=== PATIENT | male | born 1965 | race Caucasian/White ===

== ENCOUNTER 2024-12-16 09:39 | Outpatient (AMB) | payer OTHER, SELFPAY ==
--- NOTE | 2024-12-16 09:47 | MHC.OFFVIS ---
Vital Signs 12/16/24 09:51 Height 5 ft 7 in Weight 193 lb BMI 30.2 BP 91/50 L Blood Pressure Location Lt brachial Position Sitting Pulse 45 L Pulse Oximetry (%) 98 Oxygen Delivery Method Room Air Intake Visit Reasons: Colonoscopy Screening Intake Note: Patient new consult for 2nd pre Colonoscopy. Patient denies any GI issues. Membership Coordinator Required: No Accompanied by: Self / Same As Patient Allergies No Known Allergies Allergy (Verified 12/16/24 09:46) Medication List - Last Reconciled 12/16/24 by Aggie Roberts CNP aspirin (Adult Low Dose Aspirin) 81 mg PO DAILY atorvastatin 80 mg PO DAILY cholecalciferol (vitamin D3) 50 mcg PO DAILY clopidogrel 75 mg PO DAILY escitalopram oxalate 10 mg PO DAILY fexofenadine (Julia Allergy) 180 mg PO DAILY lisinopril 10 mg PO DAILY melatonin 10 mg PO BEDTIME PRN metoprolol tartrate 25 mg PO BID oxymetazoline 0.05% (12 Hour Nasal Relief [place]) 2 sprays intranasal Q12H PRN temazepam 7.5 mg PO BEDTIME PRN HPI HPI Colonoscopy Screening: Details: Patient is a 59-year-old male with PMH of CAD, hypertension, hyperlipidemia and CHON. Referred by PCP for pre colonoscopy screening. [place]ares [place] with recommendations for repeat 10 years. He reports daily bowel movements, sometimes more, sometimes less, depending on food intake. Occasional minimal straining and infrequent spots of bright red blood on tissue, reported last six months ago. No acid reflux, regurgitation, or trouble swallowing. Issues with insomnia managed with as-needed temazepam and/or melatonin. Patient has a history of coronary artery disease and hypertension, managed by Dr. Elias Gardiner at [facility]. Last visit was three months ago, with a stable follow-up cardiac catheterization in the last six months. Patient had a cardiac stent placed approximately nine years ago. Patient denies: fever/chills, n/v, appetite changes, pyrosis, regurgitation,dysphasia, unintentional wt loss or ab pain Social hx: - Diet: Attempts to eat healthily; dietary habits vary. - Alcohol/Tobacco/Drug Use: No alcohol for two years, glass of wine daily before cessation. Past smoking, quit at age 27. No recreational drug use. 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 PFSH Medical History (Updated 12/16/24 @ 10:00 by Aggie Roberts CNP) Colon cancer screening Surgical History (Updated 12/16/24 @ 09:59 by Lexie Portillo) Hx of colonoscopy History of repair of ACL Family History (Updated 12/16/24 @ 09:49 by Lexie Portillo) Mother Cholangiolitis Heart disease Father HTN (hypertension) Heart disease Paternal Grandfather Cancer Social History Household Members: Family Alcohol intake: former Patient Tobacco Use Status: Former Tobacco user Smoked in Last 30 Days: No Use of substances other than those prescribed or required for medical reasons: No Review of Systems Const Reports as per HPI ENT Reports as per HPI Card Reports as per HPI Resp Reports as per HPI GI Reports as per HPI Reports as per HPI Physical Exam Vital Signs: Last Vital Signs Pulse 45 L 12/16/24 09:51 BP 91/50 L 12/16/24 09:51 Pulse Ox 98 12/16/24 09:51 Oxygen Delivery Method Room Air 12/16/24 09:51 BMI result Body Mass Index 30.2 Const General: healthy appearing, no acute distress and well developed Nutritional Appearance: well nourished Orientation/consciousness: patient oriented x3 HEENT Head: Yes normal to inspection, Yes normocephalic and Yes atraumatic Face and sinus: Yes normal facial exam Eyes General: appearance normal, both eyes and all related structures Neck Neck: Yes normal visual inspection Resp Effort & Inspection: normal respiratory effort, able to speak in complete sentences, no tracheal deviation and symmetric chest movement Auscultation: clear to auscultation bilaterally Cardio Jugular venous distension: no JVD Rate: regular rate Rhythm: regular rhythm Heart sounds: S1 normal heart sound present, S2 normal heart sound present, no gallops and no murmurs GI Inspection: Yes normal to inspection and No distended Palpation (GI): Soft to palpation, not firm, nontender and No hepatosplenomegaly present Auscultation: normal bowel sounds Neuro General: patient oriented x3 Gait exam (Neuro): Normal gait present Psych Appearance: grossly normal Mental Status: mental status grossly normal Speech and movement: Normal speech and movement present Affect: normal affect Attitude: cooperative Thought process: Normal thought process present Thought content: Normal thought content present Insight: Good insight present (Psych) Judgement: Good judgement present (Psych) Assessment & Plan Assessment & Plan (1) Colon cancer screening: Code(s): Z12.11 - Encounter for screening for malignant neoplasm of colon Category: Medical Plan: 10 year screening colonoscopy. Diagnostic Tests: Prescriptions for laxative tablets and Miralax sent to pharmacy; instructions for Gatorade purchase and clear liquid diet given. Medications: - aspirin and clopidogrel to be held prior to procedure. Advise we will confirm with prescriber on exact length of hold. Patient educated on procedure preparation, including avoiding certain foods and ensuring clear liquid intake. Advised on necessity for ride post-procedure due to sedation. Plan Follow-up as needed Time: I spent a total of 30 minutes on the date of encounter which includes: Preparing to see the patient (reviewed previous documentation, test results and medical history) Performing a medically appropriate exam and/or evaluation Ordering medications, tests, and procedures Documenting clinical information in the health record Coding Level of Care Code New Pt New Pt Level 3 (48915) Patient Type New Diagnoses Colon cancer screening Z12.11
[2024-12-16 09:51] VITALS: BP 91/50; PULSE 45; O2SAT 98; BMI 30.2
--- OUTSIDE RECORDS SUMMARY | 2024-12-16 10:39 | XMS_ITS | Patient Health Record ---
Author Organization [employer] [facility] Address [address] [place] [address] Care Team Providers Care Stock Selector Name Role Phone ERICA HOLT Primary Care Provider Allergies No Known Allergies Results Component Value Reference Range Notes PSA (Serial Monitor)-[id number] Reviewed date:08/16/2024 08:15:34 AM Interpretation: Performing Lab:[facility], [address] [place] [address], Phone - [phone], Director - Olive Notes/Report: Prostate Specific Ag 3.0 0.0-4.0 ng/mL Kelly ECLIA methodology. . According to the [place] [employer], Serum PSA should decrease and remain at undetectable levels after radical prostatectomy. The AUA defines biochemical recurrence as an initial PSA value 0.2 ng/mL or greater followed by a subsequent confirmatory PSA value 0.2 ng/mL or greater. Values obtained with different assay methods or kits cannot be used interchangeably. Results cannot be interpreted as absolute evidence of the presence or absence of malignant disease. Vitamin B12 and Folate-[id number] 0 Reviewed date:08/16/2024 08:13:13 AM Interpretation: Performing Lab:[facility], [address] [facility], Phone - [phone], Director - Bushradryamil Notes/Report: Vitamin B12 123 060-4651 pg/mL Folate (Folic Acid), Serum 9.1 >3.0 ng/mL A serum folate concentration of less than 3.1 ng/mL is considered to represent clinical deficiency. TSH-[id number] Reviewed date:08/16/2024 08:13:16 AM Interpretation: Performing Lab:[facility], [address] [facility], Phone - [phone], Director Jennifer Schaefer Notes/Report: TSH 1.020 0.450-4.500 uIU/mL 25-Hydroxyvitamin D LCVA D2+ [id number] Reviewed date:08/16/2024 08:15:30 AM Interpretation: Performing Lab:[facility] [address] [place] [address], Phone - [phone], Director Jennifer Schaefer Notes/Report: 25-Hydroxy, Vitamin D 26 Reference Range: All Ages: Target levels 30 - 100 25-Hydroxy, Vitamin D-2 <1.0 This test was developed and its performance characteristics determined by [employer]. It has not been cleared or approved by the Food and Drug Administration. 25-Hydroxy, Vitamin D-3 26 This test was developed and its performance characteristics determined by [facility]. It has not been cleared or approved by the Food and Drug Administration. Lyme Disease Serology w/Refl ex-[id number] Reviewed date:08/16/2024 08:15:36 AM Interpretation: Performing Lab:[facility] [address] [place] [address], Phone - [phone], Director Jennifer Schaefer Notes/Report: Lyme Total Antibody JESSE Negative Negative Lyme antibodies not detected. Reflex testing is not indicated. No laboratory evidence of infection with B. burgdorferi (Lyme disease). Negative results may occur in patients recently infected (less than or equal to 14 days) with B. burgdorferi. If recent infection is suspected, repeat testing on a new sample collected in 7 to 14 days is recommended. Hemoglobin [id number] Reviewed date:08/16/2024 08:15:41 AM Interpretation: Performing Lab:[facility] [address] [place] [address], Phone - [phone], Director Jennifer Schaefer Notes/Report: Hemoglobin A1c 5.3 4.8-5.6 % . Prediabetes: 5.7 - 6.4 Diabetes: >6.4 Glycemic control for adults with diabetes: <7.0 Lipid Panel-[id number] Reviewed date:08/16/2024 08:15:44 AM Interpretation: Performing Lab:[facility], Phone - [phone], Director Jennifer Schaefer Notes/Report: Cholesterol, Total 123 100-199 mg/dL Triglycerides 102 0-149 mg/dL HDL Cholesterol 40 >39 mg/dL VLDL Cholesterol Davis 19 5-40 mg/dL LDL Chol Calc ([facility]) 64 0-99 mg/dL Comp. Metabolic Panel ([id number] Reviewed date:08/16/2024 08:15:20 AM Interpretation: Performing Lab:[facility], [address] [place] [address], Phone - [phone], Director - Olive Notes/Report: Glucose 96 70-99 mg/dL BUN 16 8-27 mg/dL Creatinine 0.90 0.76-1.27 mg/dL eGFR 98 >59 mL/min/1.73 BUN/Creatinine Ratio 18 10-24 Sodium 141 134-144 mmol/L Potassium 4.7 3.5-5.2 mmol/L Chloride 104 96-106 mmol/L Carbon Dioxide, Total 23 20-29 mmol/L Calcium 9.3 8.6-10.2 mg/dL Protein, Total 6.8 6.0-8.5 g/dL Albumin 4.4 3.8-4.9 g/dL Globulin, Total 2.4 1.5-4.5 g/dL Bilirubin, Total 0.5 0.0-1.2 mg/dL Alkaline Phosphatase 68 44-121 IU/L AST (SGOT) 28 0-40 IU/L ALT (SGPT) 31 0-44 IU/L CBC, Platelet, No Differenti al-[id number] Reviewed date:08/16/2024 08:15:39 AM Interpretation: Performing Lab:[facility], [address] [place] [address], Phone - [phone], Director - Olive Notes/Report: WBC 6.0 3.4-10.8 x10E3/uL RBC 4.73 4.14-5.80 x10E6/uL Hemoglobin 14.7 13.0-17.7 g/dL Hematocrit 43.5 37.5-51.0 % MCV 92 79-97 fL MCH 31.1 26.6-33.0 pg MCHC 33.8 31.5-35.7 g/dL RDW 12.5 11.6-15.4 % Platelets 228 150-450 x10E3/uL Albumin/Creatinine Ratio,Uri ne-[id number] Reviewed date:08/16/2024 08:15:56 AM Interpretation: Performing Lab:[facility] [address] [place] [address], Phone - [phone], Director - Olive Notes/Report: Creatinine, Urine 147.5 Not Estab. mg/dL Albumin, Urine 14.4 Not Estab. ug/mL Alb/Creat Ratio 10 0-29 mg/g creat Normal: 0 - 29 Moderately increased: 30 - 300 Severely increased: >300 Reason For Referral Reason yearly screening Diagnosis 1 Encounter for screen ing for malignant neoplasm of skin (Z12.83) Referral Organization [facility] Referring Provider First Name MALDONADO Referring Provider Last Name [facility] Referring Provider Speciality Internal edicine Referred Provider Specialty Dermatology General Notes Referral faxed. Chiquisa se call patient to schedule appointment.Jaylin Shannon 10/21/2024 02:26:59 PM > Referral Priority Routine Reason screening colonoscop y Diagnosis 1 Annual physical exam (Z00.00) Referral Organization [facility] Referring Provider First Name ERICA Referring Provider Last Name [facility] Referring Provider Speciality Internal edicine Referred Provider Specialty Gastroentero logy General Notes Referral faxed. Plea se call patient to schedule appointment.Jaylin Shannon 10/21/2024 02:32:57 PM > Referral Priority Routine Medications Medication SIG (Take, Route, Frequency, Duration) Notes Start Date End Date Status Escitalopram Oxalate 10 MG TAKE 1 TABLET BY MOUTH EVERY DAY for 90 days Active Metoprolol Tartrate 50 MG TAKE 1 TABLET BY MOUTH TWO TIMES A DAY WITH FOOD for 90 days Active Restoril 7.5 MG 1 capsule at bedtime as needed Orally Once a day for 30 days prn 12/14/2023 Active Aspirin Low Dose 81 MG TAKE 2 TABLETS BY MOUTH EVERY DAY for 90 days Active Julia Allergy 180 MG 1 tablet Swallow whole with water; do not take with fruit juices. Orally Once a day Active Atorvastatin Calcium 80 MG TAKE 1 TABLET BY MOUTH EVERY DAY for 90 days Active Nasal [place] 0.05 % 2 sprays in each nos tril as needed Nasally Twice a day Active Lisinopril 10 MG 1 tablet Orally Once a day Active Clopidogrel Bisulfate 75 MG 1 tablet Ora lly Once a day Active Immunizations Vaccine Route Administration Date Status Comme nts COVID Unknown 07/16/2020 Administered Pfizer COVID Unknown 08/06/2020 Administered Pfizer COVID Unknown 03/31/2021 Administered Pfizer-boost er COVID Pfizer Unknown 11/11/2021 Administered COVID-19 Moderna Unknown 12/26/2022 Administered Influenza Unknown 05/13/2021 Administered Pneumococcal polysaccharide PPV23 Unknown 06/23/2021 Administered Social History Tobacco Use: Social History Observation Description Date Details (start date - stop date) Former Smoker NA - NA Tobacco Use/Smoking Question Answer Notes Are you a former smoker How long has it been since you last smoked? > 10 years Alcohol Screen (Audit-C) Question Answer Notes Did you have a drink contain ing alcohol in the past year? Yes How often did you have a dri nk containing alcohol in the past year? Monthly or less (1 point) How many drinks did you have on a typical day when you were drinking in the past year? 1 or 2 drinks (0 point) How often did you have 6 or more drinks on one occasion in the past year? Never (0 point) Points 1 Interpretation Negative Problems Problem Type SNOMED Code ICD Code Onset Dates Problem Status W/U Status Risk Notes Problem Mixed hyperlipidemia (824884436) Mixed hyperlipidemia (E78.2) Active confirmed Problem Generalized anxiety disorder (54181806) Generalized anxiety disorder (F41.1) Active confirmed Problem Insomnia (737407933) Insomnia, unspecified (G47.00) Active confirmed Problem Obstructive sleep apnea syndrome (disorder) (57641274) Obstructive sleep apnea (adult) (pediatric) (G47.33) Active confirmed Problem Atherosclerotic heart disease of [place] coronary artery without angina pectoris (499858312393916) Atherosclerotic heart disease of [place] coronary artery without angina pectoris (I25.10) Active confirmed Problem Sciatica (03741055) Sciatica, unspecified side (M54.30) Active confirmed Problem Hyperesthesia (79601202) Hyperesthesia (R20.3) Active confirmed Problem Essential hypertension (08542827) Essential (primary) hypertension (I10) Active confirmed Vital Signs Heart Rate 54 /min 07/08/2024 Temperature 97.1 degrees Fahrenheit 07/08/2024 Oximetry 97 % 07/08/2024 Blood pressure diastolic 78 mm Hg 07/08/2024 Height 68 in 07/08/2024 Blood pressure systolic 130 mm Hg 07/08/2024 Weight 196.8 lbs 07/08/2024 BMI 29.92 kg/m2 07/08/2024 Encounters Encounter Location Date Provider Diagnosis [facility] [address] [place] [address] 07/08/2024 ERICA HOLT Essential (primary) hypertension I10 ; Annual physical exam Z00.00 ; Mixed hyperlipidemia E78.2 ; Generalized anxiety disorder F41.1 ; Atherosclerotic heart disease of [place] coronary artery without angina pectoris I25.10 ; Insomnia, unspecified G47.00 ; Obstructive sleep apnea (adult) (pediatric) G47.33 ; Impaired fasting glucose R73.01 ; Other fatigue R53.83 and Encounter for screening for malignant neoplasm of prostate Z12.5 [facility] [address] [place] [address] 02/06/2024 ERICA HOLT Assessments Encounter Date Diagnosis (ICD Code) Assessment Notes Treatment Notes Treatment Clinical Notes Section Notes 07/08/2024 Essential (primary) hypertension (ICD-10 - I10) Dr. Maldonado is a 59 year old gentleman with a history of coronary artery disease, hypertension, hyperlipidemia, generalized anxiety disorder here for annual physical. Plan is as follows: Hypertension. Blood pressure was repeated 2 times it was 92/70. He was advised to take metoprolol 25 mg half a tablet twice a day and monitor blood pressure and pulse at home and continue lisinopril 10 mg daily. Hyperlipidemia. Last lipid panel within normal limits. Continue on current regimen. Check lipid panel. Generalized anxiety disorder. Mood is stable on current regimen CAD. He is on right medications. He sees cardiology and Recent stress test was stable And no change from previous study. Insomnia. Continue Restoril 7.5 MG, 1 capsule at bedtime as needed. Fatigue. Differential is polypharmacy, insomnia, anxiety. We will check reversible conditions like anemia, thyroid dysfunction, vitamin D levels. He was also advised to decrease metoprolol to 25 mg 1 tablet twice a day and observe. Stay appropriately hydrated and increase the dose of melatonin and magnesium and take Restoril as needed. Class 1 obesity. Advised dietary restrictions and regular exercise. Goal is to lose 4-6 lbs a month. Eye screening. Referred to Ophthalmology Dental screening. He sees dentist regularly. Colon cancer screening. He had his colonoscopy done in 2013 and is on [id number]. Referred to GI for colonoscopy Immunizations. He is up-to-date on his vaccinations. Screening blood work before next appointment. General health concerns discussed with patient. Scribe services used to formulate this note under HIPAA compliance and under [place] law mandated for scribe services. Patient aware of service. Verbal consent and written consent taken from the patient. Patient understands and verbalizes understanding of the scribes services and all questions answered regarding scribes services. Patient agrees to use of scribes services. 07/08/2024 Annual physical exam (ICD-10 - Z00.00) Dr. Maldonado is a 59 year old gentleman with a history of coronary artery disease, hypertension, hyperlipidemia, generalized anxiety disorder here for annual physical. Plan is as follows: Hypertension. Blood pressure was repeated 2 times it was 92/70. He was advised to take metoprolol 25 mg half a tablet twice a day and monitor blood pressure and pulse at home and continue lisinopril 10 mg daily. Hyperlipidemia. Last lipid panel within normal limits. Continue on current regimen. Check lipid panel. Generalized anxiety disorder. Mood is stable on current regimen CAD. He is on right medications. He sees cardiology and Recent stress test was stable And no change from previous study. Insomnia. Continue Restoril 7.5 MG, 1 capsule at bedtime as needed. Fatigue. Differential is polypharmacy, insomnia, anxiety. We will check reversible conditions like anemia, thyroid dysfunction, vitamin D levels. He was also advised to decrease metoprolol to 25 mg 1 tablet twice a day and observe. Stay appropriately hydrated and increase the dose of melatonin and magnesium and take Restoril as needed. Class 1 obesity. Advised dietary restrictions and regular exercise. Goal is to lose 4-6 lbs a month. Eye screening. Referred to Ophthalmology Dental screening. He sees dentist regularly. Colon cancer screening. He had his colonoscopy done in 2013 and is on [id number]. Referred to GI for colonoscopy Immunizations. He is up-to-date on his vaccinations. Screening blood work before next appointment. General health concerns discussed with patient. Scribe services used to formulate this note under HIPAA compliance and under [place] law mandated for scribe services. Patient aware of service. Verbal consent and written consent taken from the patient. Patient understands and verbalizes understanding of the scribes services and all questions answered regarding scribes services. Patient agrees to use of scribes services. 07/08/2024 Mixed hyperlipidemia (ICD-10 - E78.2) Dr. Maldonado is a 59 year old gentleman with a history of coronary artery disease, hypertension, hyperlipidemia, generalized anxiety disorder here for annual physical. Plan is as follows: Hypertension. Blood pressure was repeated 2 times it was 92/70. He was advised to take metoprolol 25 mg half a tablet twice a day and monitor blood pressure and pulse at home and continue lisinopril 10 mg daily. Hyperlipidemia. Last lipid panel within normal limits. Continue on current regimen. Check lipid panel. Generalized anxiety disorder. Mood is stable on current regimen CAD. He is on right medications. He sees cardiology and Recent stress test was stable And no change from previous study. Insomnia. Continue Restoril 7.5 MG, 1 capsule at bedtime as needed. Fatigue. Differential is polypharmacy, insomnia, anxiety. We will check reversible conditions like anemia, thyroid dysfunction, vitamin D levels. He was also advised to decrease metoprolol to 25 mg 1 tablet twice a day and observe. Stay appropriately hydrated and increase the dose of melatonin and magnesium and take Restoril as needed. Class 1 obesity. Advised dietary restrictions and regular exercise. Goal is to lose 4-6 lbs a month. Eye screening. Referred to Ophthalmology Dental screening. He sees dentist regularly. Colon cancer screening. He had his colonoscopy done in 2013 and is on [id number]. Referred to GI for colonoscopy Immunizations. He is up-to-date on his vaccinations. Screening blood work before next appointment. General health concerns discussed with patient. Scribe services used to formulate this note under HIPAA compliance and under [place] law mandated for scribe services. Patient aware of service. Verbal consent and written consent taken from the patient. Patient understands and verbalizes understanding of the scribes services and all questions answered regarding scribes services. Patient agrees to use of scribes services. 07/08/2024 Generalized anxiety disorder (ICD-10 - F41.1) Dr. Maldonado is a 59 year old gentleman with a history of coronary artery disease, hypertension, hyperlipidemia, generalized anxiety disorder here for annual physical. Plan is as follows: Hypertension. Blood pressure was repeated 2 times it was 92/70. He was advised to take metoprolol 25 mg half a tablet twice a day and monitor blood pressure and pulse at home and continue lisinopril 10 mg daily. Hyperlipidemia. Last lipid panel within normal limits. Continue on current regimen. Check lipid panel. Generalized anxiety disorder. Mood is stable on current regimen CAD. He is on right medications. He sees cardiology and Recent stress test was stable And no change from previous study. Insomnia. Continue Restoril 7.5 MG, 1 capsule at bedtime as needed. Fatigue. Differential is polypharmacy, insomnia, anxiety. We will check reversible conditions like anemia, thyroid dysfunction, vitamin D levels. He was also advised to decrease metoprolol to 25 mg 1 tablet twice a day and observe. Stay appropriately hydrated and increase the dose of melatonin and magnesium and take Restoril as needed. Class 1 obesity. Advised dietary restrictions and regular exercise. Goal is to lose 4-6 lbs a month. Eye screening. Referred to Ophthalmology Dental screening. He sees dentist regularly. Colon cancer screening. He had his colonoscopy done in 2013 and is on [id number]. Referred to GI for colonoscopy Immunizations. He is up-to-date on his vaccinations. Screening blood work before next appointment. General health concerns discussed with patient. Scribe services used to formulate this note under HIPAA compliance and under [place] law mandated for scribe services. Patient aware of service. Verbal consent and written consent taken from the patient. Patient understands and verbalizes understanding of the scribes services and all questions answered regarding scribes services. Patient agrees to use of scribes services. 07/08/2024 Atherosclerotic heart disease of [place] coronary artery without angina pectoris (ICD-10 - I25.10) Dr. Maldonado is a 59 year old gentleman with a history of coronary artery disease, hypertension, hyperlipidemia, generalized anxiety disorder here for annual physical. Plan is as follows: Hypertension. Blood pressure was repeated 2 times it was 92/70. He was advised to take metoprolol 25 mg half a tablet twice a day and monitor blood pressure and pulse at home and continue lisinopril 10 mg daily. Hyperlipidemia. Last lipid panel within normal limits. Continue on current regimen. Check lipid panel. Generalized anxiety disorder. Mood is stable on current regimen CAD. He is on right medications. He sees cardiology and Recent stress test was stable And no change from previous study. Insomnia. Continue Restoril 7.5 MG, 1 capsule at bedtime as needed. Fatigue. Differential is polypharmacy, insomnia, anxiety. We will check reversible conditions like anemia, thyroid dysfunction, vitamin D levels. He was also advised to decrease metoprolol to 25 mg 1 tablet twice a day and observe. Stay appropriately hydrated and increase the dose of melatonin and magnesium and take Restoril as needed. Class 1 obesity. Advised dietary restrictions and regular exercise. Goal is to lose 4-6 lbs a month. Eye screening. Referred to Ophthalmology Dental screening. He sees dentist regularly. Colon cancer screening. He had his colonoscopy done in 2013 and is on [id number]. Referred to GI for colonoscopy Immunizations. He is up-to-date on his vaccinations. Screening blood work before next appointment. General health concerns discussed with patient. Scribe services used to formulate this note under HIPAA compliance and under [place] law mandated for scribe services. Patient aware of service. Verbal consent and written consent taken from the patient. Patient understands and verbalizes understanding of the scribes services and all questions answered regarding scribes services. Patient agrees to use of scribes services. 07/08/2024 Insomnia, unspecified (ICD-10 - G47.00) Dr. Maldonado is a 59 year old gentleman with a history of coronary artery disease, hypertension, hyperlipidemia, generalized anxiety disorder here for annual physical. Plan is as follows: Hypertension. Blood pressure was repeated 2 times it was 92/70. He was advised to take metoprolol 25 mg half a tablet twice a day and monitor blood pressure and pulse at home and continue lisinopril 10 mg daily. Hyperlipidemia. Last lipid panel within normal limits. Continue on current regimen. Check lipid panel. Generalized anxiety disorder. Mood is stable on current regimen CAD. He is on right medications. He sees cardiology and Recent stress test was stable And no change from previous study. Insomnia. Continue Restoril 7.5 MG, 1 capsule at bedtime as needed. Fatigue. Differential is polypharmacy, insomnia, anxiety. We will check reversible conditions like anemia, thyroid dysfunction, vitamin D levels. He was also advised to decrease metoprolol to 25 mg 1 tablet twice a day and observe. Stay appropriately hydrated and increase the dose of melatonin and magnesium and take Restoril as needed. Class 1 obesity. Advised dietary restrictions and regular exercise. Goal is to lose 4-6 lbs a month. Eye screening. Referred to Ophthalmology Dental screening. He sees dentist regularly. Colon cancer screening. He had his colonoscopy done in 2013 and is on [id number]. Referred to GI for colonoscopy Immunizations. He is up-to-date on his vaccinations. Screening blood work before next appointment. General health concerns discussed with patient. Scribe services used to formulate this note under HIPAA compliance and under [place] law mandated for scribe services. Patient aware of service. Verbal consent and written consent taken from the patient. Patient understands and verbalizes understanding of the scribes services and all questions answered regarding scribes services. Patient agrees to use of scribes services. 07/08/2024 Obstructive sleep apnea (adult) (pediatric) (ICD-10 - G47.33) Dr. Maldonado is a 59 year old gentleman with a history of coronary artery disease, hypertension, hyperlipidemia, generalized anxiety disorder here for annual physical. Plan is as follows: Hypertension. Blood pressure was repeated 2 times it was 92/70. He was advised to take metoprolol 25 mg half a tablet twice a day and monitor blood pressure and pulse at home and continue lisinopril 10 mg daily. Hyperlipidemia. Last lipid panel within normal limits. Continue on current regimen. Check lipid panel. Generalized anxiety disorder. Mood is stable on current regimen CAD. He is on right medications. He sees cardiology and Recent stress test was stable And no change from previous study. Insomnia. Continue Restoril 7.5 MG, 1 capsule at bedtime as needed. Fatigue. Differential is polypharmacy, insomnia, anxiety. We will check reversible conditions like anemia, thyroid dysfunction, vitamin D levels. He was also advised to decrease metoprolol to 25 mg 1 tablet twice a day and observe. Stay appropriately hydrated and increase the dose of melatonin and magnesium and take Restoril as needed. Class 1 obesity. Advised dietary restrictions and regular exercise. Goal is to lose 4-6 lbs a month. Eye screening. Referred to Ophthalmology Dental screening. He sees dentist regularly. Colon cancer screening. He had his colonoscopy done in 2013 and is on [id number]-[id number]. Referred to GI for colonoscopy Immunizations. He is up-to-date on his vaccinations. Screening blood work before next appointment. General health concerns discussed with patient. Scribe services used to formulate this note under HIPAA compliance and under [place] law mandated for scribe services. Patient aware of service. Verbal consent and written consent taken from the patient. Patient understands and verbalizes understanding of the scribes services and all questions answered regarding scribes services. Patient agrees to use of scribes services. 07/08/2024 Impaired fasting glucose (ICD-10 - R73.01) Dr. Maldonado is a 59 year old gentleman with a history of coronary artery disease, hypertension, hyperlipidemia, generalized anxiety disorder here for annual physical. Plan is as follows: Hypertension. Blood pressure was repeated 2 times it was 92/70. He was advised to take metoprolol 25 mg half a tablet twice a day and monitor blood pressure and pulse at home and continue lisinopril 10 mg daily. Hyperlipidemia. Last lipid panel within normal limits. Continue on current regimen. Check lipid panel. Generalized anxiety disorder. Mood is stable on current regimen CAD. He is on right medications. He sees cardiology and Recent stress test was stable And no change from previous study. Insomnia. Continue Restoril 7.5 MG, 1 capsule at bedtime as needed. Fatigue. Differential is polypharmacy, insomnia, anxiety. We will check reversible conditions like anemia, thyroid dysfunction, vitamin D levels. He was also advised to decrease metoprolol to 25 mg 1 tablet twice a day and observe. Stay appropriately hydrated and increase the dose of melatonin and magnesium and take Restoril as needed. Class 1 obesity. Advised dietary restrictions and regular exercise. Goal is to lose 4-6 lbs a month. Eye screening. Referred to Ophthalmology Dental screening. He sees dentist regularly. Colon cancer screening. He had his colonoscopy done in 2013 and is on [id number]. Referred to GI for colonoscopy Immunizations. He is up-to-date on his vaccinations. Screening blood work before next appointment. General health concerns discussed with patient. Scribe services used to formulate this note under HIPAA compliance and under [place] law mandated for scribe services. Patient aware of service. Verbal consent and written consent taken from the patient. Patient understands and verbalizes understanding of the scribes services and all questions answered regarding scribes services. Patient agrees to use of scribes services. 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 Plan is as follows: Hypertension. Blood pressure was repeated 2 times it was 92/70. He was advised to take metoprolol 25 mg half a tablet twice a day and monitor blood pressure and pulse at home and continue lisinopril 10 mg daily. Hyperlipidemia. Last lipid panel within normal limits. Continue on current regimen. Check lipid panel. Generalized anxiety disorder. Mood is stable on current regimen CAD. He is on right medications. He sees cardiology and Recent stress test was stable And no change from previous study. Insomnia. Continue Restoril 7.5 MG, 1 capsule at bedtime as needed. Fatigue. Differential is polypharmacy, insomnia, anxiety. We will check reversible conditions like anemia, thyroid dysfunction, vitamin D levels. He was also advised to decrease metoprolol to 25 mg 1 tablet twice a day and observe. Stay appropriately hydrated and increase the dose of melatonin and magnesium and take Restoril as needed. Class 1 obesity. Advised dietary restrictions and regular exercise. Goal is to lose 4-6 lbs a month. Eye screening. Referred to Ophthalmology Dental screening. He sees dentist regularly. Colon cancer screening. He had his colonoscopy done in 2013 and is on [id number]. Referred to GI for colonoscopy Immunizations. He is up-to-date on his vaccinations. Screening blood work before next appointment. General health concerns discussed with patient. Scribe services used to formulate this note under HIPAA compliance and under [place] law mandated for scribe services. Patient aware of service. Verbal consent and written consent taken from the patient. Patient understands and verbalizes understanding of the scribes services and all questions answered regarding scribes services. Patient agrees to use of scribes services. 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 Plan is as follows: Hypertension. Blood pressure was repeated 2 times it was 92/70. He was advised to take metoprolol 25 mg half a tablet twice a day and monitor blood pressure and pulse at home and continue lisinopril 10 mg daily. Hyperlipidemia. Last lipid panel within normal limits. Continue on current regimen. Check lipid panel. Generalized anxiety disorder. Mood is stable on current regimen CAD. He is on right medications. He sees cardiology and Recent stress test was stable And no change from previous study. Insomnia. Continue Restoril 7.5 MG, 1 capsule at bedtime as needed. Fatigue. Differential is polypharmacy, insomnia, anxiety. We will check reversible conditions like anemia, thyroid dysfunction, vitamin D levels. He was also advised to decrease metoprolol to 25 mg 1 tablet twice a day and observe. Stay appropriately hydrated and increase the dose of melatonin and magnesium and take Restoril as needed. Class 1 obesity. Advised dietary restrictions and regular exercise. Goal is to lose 4-6 lbs a month. Eye screening. Referred to Ophthalmology Dental screening. He sees dentist regularly. Colon cancer screening. He had his colonoscopy done in 2013 and is on [id number]. Referred to GI for colonoscopy Immunizations. He is up-to-date on his vaccinations. Screening blood work before next appointment. General health concerns discussed with patient. Scribe services used to formulate this note under HIPAA compliance and under [place] law mandated for scribe services. Patient aware of service. Verbal consent and written consent taken from the patient. Patient understands and verbalizes understanding of the scribes services and all questions answered regarding scribes services. Patient agrees to use of scribes services. Plan Of Treatment Pending Test Test Name Order Date COMPREHENSIVE METABOLIC PANEL 12/23/2021 Future Test Test Name Order Date ANTI-NUCLEAR ANTIBODY SCREEN, REFLEX TO TITER 06/07/2022 COMPREHENSIVE METABOLIC PANEL 06/07/2022 LIPID PANEL 06/07/2022 PSA, SCREEN 06/07/2022 HEPATITIS A ANTIBODY, IGM 06/08/2022 HEPATITIS B CORE ANTIBODY, IGM 2 HEPATITIS B SURFACE ANTIGEN 06/08/2022 HEPATITIS C ANTIBODY 06/08/2022 MITOCHONDRIAL (M2) ANTIBODY 06/08/2022 SMOOTH MUSCLE ANTIBODY 06/08/2022 LIPID PANEL 12/13/2022 CBC, No Differential/Platelet-[id number] 04/2024 Next Appt Details Provider Name:Hany wilkinson, 01/06/2025 03:45:00 PM, [address] [place] [address], [phone], Insurance Providers Payer Name Payer Address Payer Phone Subscriber Number Group Number Insured Name Patient Relationship to Insured Coverage Start Date Coverage End Date [facility] [address] [place] [address] [phone] [id number] Bryce Maldonado Self - patient is the insured 1 Medical (General) History Medical History History ICD Code Coronary artery disease 2016 Stent Circu mflex and LAD Disease, Dr. Gardiner Hypertension Hyperlipidemia Generalized anxiety disorder Stress test December 2015. Nucle ar imaging positive for medium size, mild severity, mixed fixed and reversible perfusion defect extending from the mid anterior septum to the true apex which is slightly reversible at the apex. There is concern for myocardial scar with mild maricarmen-infarct ischemia. EF was 66%. No regional wall abnormality. Mild sleep apnea on sleep st [facility] done sleep medicine services of [facility] in February 2020 Personal history of COVID-19 Surgical History Surgery Date(Month/Year) ACL repair of the right knee 09/2018 Stent placed 03/2019
--- OUTSIDE RECORDS SUMMARY | 2024-12-16 10:39 | XMS_ITS | Clinical Summary ---
Author Organization [facility] Address [address] [place] [address] Phone Care Team Providers Care Plate Painter Name Role Phone Ashlie Bowles MD Primary Care Provider [phone] Allergies No known active allergies Medications MAGNESIUM ORAL Take by mouth as needed. Active melatonin 1 mg tablet Take 5 Tablets by mouth daily as needed. Active atorvastatin (LIPITOR) 80 mg tablet Take 1 tablet (80 mg total) by mouth 1 (one) time each day. 09/07/2019 Active aspirin 81 mg EC tablet Take 2 tablets (162 mg total) by mouth 1 (one) time each day. 02/11/2020 Active escitalopram (LEXAPRO) 10 mg tablet Take 10 mg by mouth daily. Active fexofenadine (DEE) 180 mg tablet Take 180 mg by mouth as needed. Active metoprolol tartrate (LOPRESSOR) 25 mg tabletIndicatio ns:Coronary artery disease involving [place] coronary artery of [place] heart without angina pectoris Take 1 tablet (25 mg total) by mouth 2 (two) times a day. 60 each 11 08/04/2024 Active clopidogreL (PLAVIX) 75 mg tablet TAKE 1 TABLET BY MOUTH EVERY DAY 90 tablet 1 08/27/2024 Active lisinopriL (PRINIVIL,ZESTR IL) 10 mg tablet TAKE 1 TABLET BY MOUTH EVERY DAY 90 tablet 2 10/28/2024 Active Active Problems Problem Noted Date Diagnosed Date Sleep apnea 12/13/2022 Coronary artery disease invo lving kan[place] coronary artery of [place] heart without angina pectoris 03/22/2021 Overview (08/20/2024): March 2016 - episode of prolonged chest discomfort radiating to the arms in the setting of intense emotional stress, positive troponin, markedly abnormal stress test resulting in angiogram showing double vessel coronary disease with critical proximal left circumflex artery stenosis and 50% ostial LAD stenosis, moderately severe lesions in proximal LAD and diffuse disease elsewhere status post left circumflex artery stenting Repeat angiogram - no progression of disease January 2019 - stress test in [place]; he exercised for 9 minutes on a standard Gurjit protocol without chest discomfort with nuclear scans demonstrating reversible anterior ischemia 2020 - stress test showing LAD territory ischemia, excellent performance on stress test with comparative relative mild reduction in functional capacity April 2024 - angiogram in the setting of worsening effort capacity and ongoing abnormal test showed 40% stenosis of the distal left main, 40% proximal LAD, 65% mid LAD, 60% mid LAD, 40% proximal left circumflex, 30% mid left circumflex and 30% mid RCA no change from prior catheterization Assessment & Plan (08/20/2024 7:52 AM EST): The patient has a known significant history of coronary artery disease with his last catheterization in April at [facility] with Dr. Elias Gardiner showing moderate stable disease with patent previous stent. He continues to have symptoms and his previous stress testing did show anterior wall ischemia. Is not entirely clear whether these symptoms reflect angina, or related to medications noncardiac etiology or related to his present lifestyles. After long discussion we have decided to reduce his metoprolol dose to see if this helps his symptoms. If symptoms worsen then we may want to consider an alternative antianginal therapy. Continue with aspirin, high-dose atorvastatin, clopidogrel, lisinopril and reduced dose metoprolol. We discussed risk reduction through lifestyle choices including healthy diet, routine exercise and weight management. Orders: metoprolol tartrate (LOPRESSOR) 25 mg tablet; Take 1 tablet (25 mg total) by mouth 2 (two) times a day. Dyspnea on exertion 03/22/2021 Surgical History Surgery Date Site/Laterality Comments CARDIAC CATHETERIZATION DONE ON 05/09/2024 AT [facility] INDICATIONS: CAD and Abnormal stress treadmill study Social History Tobacco Use Types Packs/Day Years Used Date Smoking Tobacco: Former Smokeless Tobacco: Never Alcohol Use Standard Drinks/Week Comments Not Currently 0 (1 standard drink = 0.6 oz pur e alcohol) Sex and Gender Information Value Date Recorded Sex Assigned at Male 09/05/2024 10:01 AM EST Legal Sex Male 5:26 AM EST Gender Identity Male 09/05/2024 10:01 AM EST Sexual Orientation Straight 09/05/2024 10 :01 AM EST Obstetrics History Last Filed Vital Signs Vital Sign Reading Time Taken Comments Blood Pressure 114/72 08/04/2024 2:20 PM EST Pulse 52 08/04/2024 2:20 PM EST Temperature - - Respiratory Rate - - Oxygen Saturation 95% 08/04/2024 2:20 PM EST Inhaled Oxygen Concentration - - Weight 88 kg (194 lb) 08/04/2024 2:20 PM EST Height 170.2 cm (5' 7 ) 08/04/2024 2:20 PM EST Body Mass Index 30.38 08/04/2024 2:20 PM EST Plan of Treatment Upcoming Encounters Date Type Department Care Team (Late st Contact Info) Description 02/12/2025 2:00 PM EDT Office Visit [facility] Cardiology [address] [place] [address] Elias Gardiner MD [address] [place] [id number] Health Maintenance Due Date Last Done Comments DTaP,Tdap,and Td Vaccines (1 - Tdap) 01/11/1983 Zoster Vaccines (1 of 2) 01/11/2014 Pneumococcal Vaccine: 50+ Years (2 of 2 - PCV) 06/23/2022 06/23/2021 Cholesterol Screening (Lipid Panel) 07/08/2022 Colorectal Cancer Screening: Colonoscopy 07/08/2022 Depression Screening 07/08/2022 HIV Screening 07/08/2022 Hepatitis C Screening 07/08/2022 Social Influencers of Health Screening 07/08/2022 Hypertension/CHF/CAD Annual BMP Blood Test 07/13/2022 COVID-19 Vaccine ( season) 2024 04/26/2023, 12/26/2022, 11/11/2021, Additional history exists Influenza Vaccine (Season Ended) 2025 04/30/2023, 05/13/2021 RSV Immunization Adult Patients (1 - 1-dose 75+ series) 01/11/2039 Pneumococcal Vaccine: Pediatrics (0 to 5 Years) and At-Risk Patients (6 to 64 Years) Aged Out 06/23/2021 No longer eligible based on patient's age to complete this topic HIB Vaccines Aged Out No longer eligi ble based on patient's age to complete this topic HPV Vaccines Aged Out No longer eligi ble based on patient's age to complete this topic Hepatitis A Vaccines Aged Out No long er eligible based on patient's age to complete this topic Hepatitis B Vaccines Aged Out No long er eligible based on patient's age to complete this topic IPV Vaccines Aged Out No longer eligi ble based on patient's age to complete this topic MMR Vaccines Aged Out No longer eligi ble based on patient's age to complete this topic Meningococcal ACWY Vaccine Aged Out N o longer eligible based on patient's age to complete this topic Meningococcal B Vaccine Aged Out No l onger eligible based on patient's age to complete this topic RSV Immunization Patients Under 20 months Aged Out No longer eligible based on patient's age to complete this topic Varicella Vaccines Aged Out No longer eligible based on patient's age to complete this topic Insurance [facility] Care Teams Plate Painter Relationship Specialty Start Date End Date Ashlie Bowles MD [address] [place] [address] PCP - General 09/01/19
== END 2024-12-16 10:21 | disposition home or self-care (01) ==
LOC: HO.HGI 09:39
PROVIDERS: PCP Hospitalist; Visit Provider Nurse Practitioner Family
DX: Z01.818 Encounter for other preprocedural examination (principal); Z12.11 Encounter for screening for malignant neoplasm of colon
CPT/HCPCS: 99202

== ENCOUNTER → 2024-12-16 09:39 | Outpatient (BNVA) | payer OTHER, SELFPAY | PROVIDERS: PCP Hospitalist; Visit Provider Nurse Practitioner Family ==

== ENCOUNTER 2025-05-05 06:38 | Day surgery (SDC) | payer OTHER, SELFPAY ==
--- OUTSIDE RECORDS SUMMARY | 2025-04-23 19:18 | XMS_ITS | Encounter Summary ---
Author Organization [facility] Address [address] [place] [address] Care Team Providers Care Account Executive Name Role Phone Ashlie Bowles MD Primary Care Provider [phone] Encounter Details Date Type Department Care Team (Late st Contact Info) Description 04/23/2025 Telephone [facility] [address] [place] [address] Elias Gardiner MD [address] [place] [address] [address] [place] [address] Social History Tobacco Use Types Packs/Day Years Used Date Smoking Tobacco: Former Cigarettes Smokeless Tobacco: Never Alcohol Use Standard Drinks/Week Comments Not Currently 0 (1 standard drink = 0.6 oz pur e alcohol) Sex and Gender Information Value Date Recorded Sex Assigned at Male 09/05/2024 10:01 AM EST Legal Sex Male 5:26 AM EST Gender Identity Male 09/05/2024 10:01 AM EST Sexual Orientation Straight 09/05/2024 10 :01 AM EST documented as of this encounter Progress Notes * Elias Gardiner MD - 04/23/2025 5:26 PM EDT error documented in this encounter Plan of Treatment Not on file documented as of this encounter Visit Diagnoses Not on filedocumented in this encounter Care Teams Account Executive Relationship Specialty Start Date End Date Ashlie Bowles MD [address] [place] [phone] PCP - General 09/01/19 documented as of this encounter
--- OUTSIDE RECORDS SUMMARY | 2025-04-23 19:18 | XMS_ITS | Clinical Summary ---
Author Organization [facility] Address [address] [place] [address] Phone Care Team Providers Care Physician Locums Urgent Care Name Role Phone Ashlie Bowles MD Primary Care Provider Allergies No known active allergies Medications melatonin 1 mg tablet Take 5 Tablets [...] 180 mg by mouth as needed. Active lisinopriL (PRINIVIL,ZESTR IL) 10 mg tablet TAKE 1 TABLET BY MOUTH EVERY DAY 90 tablet 2 10/28/2024 Active metoprolol tartrate (LOPRESSOR) 25 mg tabletIndicatio ns:Coronary artery disease involving [place] coronary artery of [place] heart without angina pectoris Take 1 tablet (25 mg total) by mouth 2 (two) times a day. 180 tablet 1 01/26/2025 Active clopidogreL (PLAVIX) 75 mg tablet TAKE 1 TABLET BY MOUTH EVERY DAY 90 tablet 1 01/26/2025 Active cholecalciferol (VITAMIN D-3) 25 mcg (1,000 unit) tablet Take 1 tablet (1,000 Units total) by mouth 1 (one) time each day. Active Active Problems Problem Noted Date Diagnosed Date Pure hypercholesterolemia 02/12/2025 Assessment & Plan (02/12/2025 5:12 PM EDT): Treated with aggressive lipid-lowering therapy. Orders: ECG 12 lead Sleep apnea 12/13/2022 Assessment & Plan (02/12/2025 5:12 PM EDT): Orders: ECG 12 lead Coronary artery disease invo lving [place] coronary artery of [place] heart without angina pectoris 03/22/2021 Overview (08/20/2024): [...] disease January 2019 - stress test in [place]; he exercised for 9 minutes on a [...] change from prior catheterization Assessment & Plan (02/12/2025 5:12 PM EDT): The patient has longstanding ischemic heart disease with a history of circumflex stenting in the setting of an acute coronary syndrome several years ago. He has had longstanding disease of the LAD with sequential moderate lesions in the 60 to 65% range. These have resulted in positive stress test but negligible clinical symptoms and recent angiography demonstrates stability of this disease. He is tolerating swimming and other activities without overt angina. Given his understandable concerns about defective anginal warning we will continue to perform stress testing with nuclear imaging every year or 2. Since he is a [employer] employee these will be performed at the hospital. I informed him about my plans for residential at the end of the year and he requested that his care be transitioned to one of my interventional colleagues. Since Dr. Parker performed the catheterization several months ago I will ask him to do so. In the meantime the patient will continue on aggressive secondary prevention. We talked about the pros and cons of dual antiplatelet therapy which has been well-tolerated for several years. I suggested that this may reduce the incidence of vascular events to a similar magnitude as it increases bleeding risk. He wishes to stay on aspirin and Plavix at least for the time being. I suggested he could interrupt the Plavix should it be necessary for colonoscopy or for any clinical evidence of bleeding. Orders: ECG 12 lead Nuclear stress test with myocardial perfusion; Future Assessment & Plan (08/20/2024 7:52 AM EST): The patient has a known significant history of coronary artery disease with his last catheterization in April at [employer] [employer] [facility] with Dr. Shahram Menchaca showing moderate stable disease with patent previous [...] times a day. Dyspnea on exertion 03/22/2021 Assessment & Plan (02/12/2025 5:12 PM EDT): The patient has had minimal exertional dyspnea which has in the past appeared to be his ischemic equivalent. He is tolerating an increase in his exercise program. He reports an element of fatigue but he continues to have remarkable stamina and a very demanding occupation. He has had periodic stress tests which have demonstrated LAD distribution ischemia. Although the degree of ischemia has been somewhat variable his coronary angiogram several months ago revealed remarkably stable LAD disease and no significant disease in the left circumflex or right coronary arteries. Orders: ECG 12 lead Nuclear stress test with myocardial perfusion; Future Encounters Date Type Department Care Team Description 04/23/2025 Telephone [facility] [address] [place] [address] Shahram Menchaca MD 04/16/2025 Telephone [facility] - [address] [place] [address] Shahram Menchaca MD 02/24/2025 Telephone [facility] [address] [place] [address] Shahram Menchaca MD 02/23/2025 Telephone [facility] [address] [place] [address] Shahram Menchaca MD 02/13/2025 Telephone [facility] [address] [place] [address] Shahram Menchaca MD 02/12/2025 2:00 PM EDT Office Visit [facility] [address] [place] [address] Shahram Menchaca MD Dyspnea on exertion (Primary Dx); Coronary artery disease involving [place] coronary artery of [place] heart without angina pectoris; Obstructive sleep apnea syndrome; Pure hypercholesterolemia 01/26/2025 [address]phone [facility] [address] [place] [address] Shahram Menchaca MD from Last 3 Months Surgical History Surgery Date Site/Laterality Comments CARDIAC CATHETERIZATION DONE ON 05/09/2024 AT [facility] INDICATIONS: CAD and Abnormal stress treadmill [...] Sign Reading Time Taken Comments Blood Pressure 108/68 02/12/2025 2:04 PM EDT Pulse 48 02/12/2025 2:04 PM EDT Temperature - - Respiratory Rate - - Oxygen Saturation 94% 02/12/2025 2:04 PM EDT Inhaled Oxygen Concentration - - Weight 87.1 kg (192 lb) 02/12/2025 2:04 PM EDT Height 170.2 cm (5' 7 ) 02/12/2025 2:04 PM EDT Body Mass Index 30.07 02/12/2025 2:04 PM EDT Plan of Treatment Health Maintenance Due Date Last Done Comments DTaP,Tdap,and Td Vaccines (1 - Tdap) 01/11/1983 Zoster Vaccines (1 of 2) 01/11/2014 Pneumococcal Vaccine: 50+ Years (2 of 2 - PCV) 06/23/2022 06/23/2021 Cholesterol Screening (Lipid Panel) 07/08/2022 Colorectal Cancer Screening: Colonoscopy 07/08/2022 HIV Screening 07/08/2022 Hepatitis C Screening 07/08/2022 Social Influencers of Health Screening 07/08/2022 Hypertension/CHF/CAD Annual BMP Blood Test 07/13/2022 Depression Screening 07/30/2024 COVID-19 Vaccine ( season) 2025 04/26/2023, 12/26/2022, 11/11/2021, Additional history exists Influenza Vaccine (#1) 2025 04/30/2023, 2020 RSV Immunization Adult Patients (1 - 1-dose 75+ series) 01/11/2039 HIB Vaccines Aged Out No longer eligi [...] on patient's age to complete this topic Procedures Procedure Name Priority Date/Time Associated Diagnosis Comments ECG 12-LEAD Routine 02/12/2025 2:12 PM EDT Dyspnea on exertion Coronary artery disease involving [place] coronary artery of [place] heart without angina pectoris Obstructive sleep apnea syndrome Pure hypercholesterolemia from Last 3 Months Results * ECG 12 lead (02/12/2025 2:12 PM EDT) Ventricular Rate ECG 50 BPM GEMUSE Atrial Rate 50 BPM GEMUSE P-R Interval 192 ms GEMUSE QRS Duration 120 ms GEMUSE Q-T Interval 454 ms GEMUSE QTc 413 ms GEMUSE P Wave [place] 47 degrees GEMUSE R [place] 15 degrees GEMUSE T [place] 38 degrees GEMUSE ECG Interpretation Sinus bradycardia Non-specific intra-ventricu lar conduction delay Borderline ECG No previous ECGs available Confirmed by SHAHRAM MENCHACA ([id number]) on 02/12/2025 4:30:04 PM GEMUSE 02/12/2025 2:12 PM EDT 02/12/2025 4:30 PM EDT Shahram Menchaca MD ECG ORDERABLES Final Result GEMUSE from Last 3 Months Insurance Care Teams Physician Locums Urgent Care Relationship Specialty Start Date End Date Ashlie Bowles MD [address] [place] [address] PCP - General 09/01/19
--- OUTSIDE RECORDS SUMMARY | 2025-04-23 19:18 | XMS_ITS | Patient Health Record ---
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, Phone - [phone], Director - MDJodry Notes/Report: Prostate Specific Ag 3.0 0.0-4.0 ng/mL Kelly ECLIA methodology. . According to the [place] [employer], Serum PSA should decrease and [...] absence of malignant disease. Vitamin B12 and Folate-18195 0 Reviewed date:08/16/2024 08:13:13 AM Interpretation: Performing Lab:[facility] [place], [employer], [place], Phone - [phone], Director - MDJodry Notes/Report: Vitamin B12 901 429-1507 pg/mL Folate (Folic Acid), Serum 9.1 >3.0 ng/mL A serum folate concentration of less than 3.1 ng/mL is considered to represent clinical deficiency. TSH-[id number] Reviewed date:08/16/2024 08:13:16 AM Interpretation: Performing Lab:[facility] [place], [address] [place] [address], Phone - [phone], Director - [facility] Notes/Report: TSH 1.020 0.450-4.500 uIU/mL 25-Hydroxyvitamin D [facility] D2+ [id number] Reviewed date:08/16/2024 08:15:30 AM Interpretation: Performing Lab:[facility] [place] [address] [place] [address], Phone - [phone], Director - [facility] Notes/Report: 25-Hydroxy, Vitamin D 26 Reference Range: All Ages: Target levels 30 - 100 25-Hydroxy, Vitamin D-2 <1.0 This test was developed and its performance characteristics determined by [facility]. It has not been cleared or approved by the Food and Drug Administration. 25-Hydroxy, Vitamin D-3 26 This test was developed and its performance characteristics determined by [facility]. It has not been cleared or approved by the Food and Drug Administration. Lyme Disease Serology w/Refl ex-[id number] Reviewed date:08/16/2024 08:15:36 AM Interpretation: Performing Lab:[facility] [address], Phone - [phone], Director - [facility] Notes/Report: Lyme Total Antibody JESSE Negative Negative [...] 7 to 14 days is recommended. Hemoglobin A3x-[id number] Reviewed date:08/16/2024 08:15:41 AM Interpretation: Performing Lab:[facility] [address], Phone - [phone], [facility] Notes/Report: Hemoglobin A1c 5.3 4.8-5.6 % . Prediabetes: 5.7 - 6.4 Diabetes: >6.4 Glycemic control for adults with diabetes: <7.0 Lipid Panel-[id number] Reviewed date:08/16/2024 08:15:44 AM Interpretation: Performing Lab:[facility] [address], Phone - [phone], Director - [place] Notes/Report: Cholesterol, Total 123 100-199 mg/dL Triglycerides 102 0-149 mg/dL HDL Cholesterol 40 >39 mg/dL VLDL Cholesterol Davis 19 5-40 mg/dL LDL Chol Calc ([facility]) 64 0-99 mg/dL Comp. Metabolic Panel (14)-3 94303 Reviewed date:08/16/2024 08:15:20 AM Interpretation: Performing Lab:[facility], [address] [place] [address], Phone - [phone], Director - [facility] Notes/Report: Glucose 96 70-99 [...] 31 0-44 IU/L CBC, Platelet, No Differenti al-[id number] Reviewed date:08/16/2024 08:15:39 AM Interpretation: Performing Lab:[facility], [address] [place] [address], Phone - [phone], Director - [facility] Notes/Report: WBC 6.0 3.4-10.8 x10E3/uL RBC 4.73 4.14-5.80 x10E6/uL Hemoglobin 14.7 13.0-17.7 g/dL Hematocrit 43.5 37.5-51.0 % MCV 92 79-97 fL MCH 31.1 26.6-33.0 pg MCHC 33.8 31.5-35.7 g/dL RDW 12.5 11.6-15.4 % Platelets 228 150-450 x10E3/uL Albumin/Creatinine Ratio,Uri ne-[id number] Reviewed date:08/16/2024 08:15:56 AM Interpretation: Performing Lab:[facility], [address], [place], Phone - [phone], Director - [facility] Notes/Report: Creatinine, Urine 147.5 Not Estab. mg/dL Albumin, Urine 14.4 Not Estab. ug/mL Alb/Creat Ratio 10 0-29 mg/g creat Normal: 0 - 29 Moderately increased: 30 - 300 Severely increased: >300 Reason For Referral Reason yearly screening Diagnosis 1 Encounter for screen ing for malignant neoplasm of skin (Z12.83) Referral Organization [facility] Referring Provider First Name ERICA Referring Provider Last Name [facility] Referring Provider Speciality Internal edicine Referred Provider Specialty Dermatology General Notes Referral faxed. Jany scott call patient to schedule appointment.Jaylin Shannon 10/21/2024 02:26:59 PM > Referral Priority Routine Reason screening colonoscop y Diagnosis 1 Annual physical exam (Z00.00) Referral Organization [facility] Referring Provider First Name ERICA Referring Provider Last Name [facility] Referring Provider Speciality Internal edicine Referred Provider Specialty Gastroentero logy General Notes Referral faxed. Jany scott call patient to schedule appointment.Jaylin Shannon 10/21/2024 02:32:57 PM > Referral Priority Routine Medications Medication SIG (Take, Route, Frequency, Duration) Notes Start Date End Date Status Aspirin Low Dose 81 MG TAKE 2 TABLETS BY MOUTH EVERY DAY; Duration: 90 Active Clopidogrel Bisulfate 75 MG 1 tablet Orally Once a day Active Lisinopril 10 MG 1 tablet Orally Once a day Active Nasal [place] 0.05 % 2 sprays in each nostril as needed Nasally Twice a day Active Julia Allergy 180 MG 1 tablet Swallow whole with water; do not take with fruit juices. Orally Once a day Active Escitalopram Oxalate 10 MG TAKE 1 TABLET BY MOUTH EVERY DAY; Duration: 90 days Active Metoprolol Tartrate 25 MG TAKE 1 TABLET BY MOUTH TWO TIMES A DAY WITH FOOD; Duration: 90 days Active Restoril 7.5 MG 1 capsule at bedtime as needed Orally Once a day; Duration: 30 days prn 12/14/2023 Not-Audrey jin Atorvastatin Calcium 80 MG TAKE 1 TABLET BY MOUTH EVERY DAY; Duration: 90 days Active Immunizations Vaccine Route Administration Date Status Comme [facility] COVID Unknown 07/16/2020 Administered Pfizer COVID Unknown [...] W/U Status Risk Notes Problem Mixed hyperlipidemia (906340109) Mixed hyperlipidemia (E78.2) Active confirmed Problem Generalized anxiety disorder (56792538) Generalized anxiety disorder (F41.1) Active confirmed Problem Insomnia (262969034) Insomnia, unspecified (G47.00) Active confirmed Problem Obstructive sleep apnea syndrome (disorder) (64368525) Obstructive sleep apnea (adult) (pediatric) (G47.33) Active confirmed Problem Atherosclerotic heart disease of [place] coronary artery without angina pectoris (390910558840135) Atherosclerotic heart disease of [place] coronary artery without angina pectoris (I25.10) Active confirmed Problem Sciatica (39075833) Sciatica, unspecified side (M54.30) Active confirmed Problem Hyperesthesia (59719513) Hyperesthesia (R20.3) Active confirmed Problem Essential hypertension (02981644) Essential (primary) hypertension (I10) Active confirmed Vital Signs Heart Rate 50 /min 01/06/2025 Temperature 96.5 degrees Fahrenheit 01/06/2025 Oximetry 96 % 01/06/2025 Blood pressure diastolic 78 mm Hg 01/06/2025 Height 68 in 01/06/2025 Blood pressure systolic 120 mm Hg 01/06/2025 Weight 194.5 lbs 01/06/2025 BMI 29.57 kg/m2 01/06/2025 Encounters Encounter Location Date Provider Diagnosis [facility] [address] [place] [address] 07/08/2024 ERICA HOLT Essential (primary) hypertension I10 ; Annual physical exam Z00.00 ; Mixed hyperlipidemia E78.2 ; Generalized anxiety disorder F41.1 ; Atherosclerotic heart disease of [place] coronary artery without angina pectoris I25.10 ; Insomnia, unspecified G47.00 ; Obstructive sleep apnea (adult) (pediatric) G47.33 ; Impaired fasting glucose R73.01 ; Other fatigue R53.83 and Encounter for screening for malignant neoplasm of prostate Z12.5 [facility] [address] [place] [address] 01/06/2025 Hany Chavez Essential (primary) hypertension I10 ; Mixed hyperlipidemia E78.2 ; Generalized anxiety disorder F41.1 ; Atherosclerotic heart disease of [place] coronary artery without angina pectoris I25.10 and Obstructive sleep apnea (adult) (pediatric) G47.33 [facility] [address] [place] [address] 12/18/2024 Hany Chavez Assessments Encounter Date Diagnosis (ICD Code) Assessment [...] colonoscopy done in 2013 and is on 95-talp-fgyfs. Referred to GI for colonoscopy Immunizations. He is up-to-date on his vaccinations. Screening blood work before next appointment. General health concerns discussed with patient. Scribe services used to formulate this note under HIPAA compliance and under [place] law mandated for scribe services. Patient aware [...] colonoscopy done in 2013 and is on 87-shxw-ftwoj. Referred to GI for colonoscopy Immunizations. He is up-to-date on his vaccinations. Screening blood work before next appointment. General health concerns discussed with patient. Scribe services used to formulate this note under HIPAA compliance and under [place] law mandated for scribe services. Patient aware of service. Verbal consent and written consent taken from the patient. Patient understands and verbalizes understanding of the scribes services and all questions answered regarding scribes services. Patient agrees to use of scribes services. 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 Plan is as follows: Hypertension. Blood pressure is well controlled. Continue on metoprolol 25 mg half a tablet twice [...] stable And no change from previous study. Class 1 obesity. Advised dietary restrictions and regular exercise. Goal is to lose 4-6 lbs a month. General concerns have been discussed I have rendered the services for this patient under direct supervision of Dr. 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 Plan is as follows: Hypertension. Blood pressure is well controlled. Continue on metoprolol 25 mg half a tablet twice [...] stable And no change from previous study. Class 1 obesity. Advised dietary restrictions and regular exercise. Goal is to lose 4-6 lbs a month. General concerns have been discussed I have rendered the services for this patient under direct supervision of Dr. Holt, who did not see the patient but was available upon request 07/08/2024 Mixed hyperlipidemia (ICD-10 - E78.2) Dr. [...] colonoscopy done in 2013 and is on 11-fbvn-xfpkj. Referred to GI for colonoscopy Immunizations. He is up-to-date on his vaccinations. Screening blood work before next appointment. General health concerns discussed with patient. Scribe services used to formulate this note under HIPAA compliance and under [place] law mandated for scribe services. Patient aware [...] colonoscopy done in 2013 and is on 14-jmiy-dqurj. Referred to GI for colonoscopy Immunizations. He is up-to-date on his vaccinations. Screening blood work before next appointment. General health concerns discussed with patient. Scribe services used to formulate this note under HIPAA compliance and under [place] law mandated for scribe services. Patient aware of service. Verbal consent and written consent taken from the patient. Patient understands and verbalizes understanding of the scribes services and all questions answered regarding scribes services. Patient agrees to use of scribes services. 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 Plan is as follows: Hypertension. Blood pressure is well controlled. Continue on metoprolol 25 mg half a tablet twice [...] stable And no change from previous study. Class 1 obesity. Advised dietary restrictions and regular exercise. Goal is to lose 4-6 lbs a month. General concerns have been discussed I have rendered the services for this patient under direct supervision of Dr. Holt, who did not see the patient but was available upon request 01/06/2025 Atherosclerotic heart disease of [place] coronary artery without angina pectoris (ICD-10 - I25.10) Joel is a 59 year old gentleman with a history of coronary artery disease, hypertension, hyperlipidemia, generalized anxiety disorder here for annual physical. Plan is as follows: Hypertension. Blood pressure is well controlled. Continue on metoprolol 25 mg half a tablet twice [...] stable And no change from previous study. Class 1 obesity. Advised dietary restrictions and regular exercise. Goal is to lose 4-6 lbs a month. General concerns have been discussed I have rendered the services for this patient under direct supervision of Dr. Holt, who did not see the patient but was available upon request 07/08/2024 Atherosclerotic heart disease of [place] coronary artery without angina pectoris (ICD-10 - I25.10) Joel is a 59 year old gentleman with [...] colonoscopy done in 2013 and is on 29-qozq-jdrkx. Referred to GI for colonoscopy Immunizations. He is up-to-date on his vaccinations. Screening blood work before next appointment. General health concerns discussed with patient. Scribe services used to formulate this note under HIPAA compliance and under [place] law mandated for scribe services. Patient aware [...] colonoscopy done in 2013 and is on 32-cfof-zkwuz. Referred to GI for colonoscopy Immunizations. He is up-to-date on his vaccinations. Screening blood work before next appointment. General health concerns discussed with patient. Scribe services used to formulate this note under HIPAA compliance and under [place] law mandated for scribe services. Patient aware of service. Verbal consent and written consent taken from the patient. Patient understands and verbalizes understanding of the scribes services and all questions answered regarding scribes services. Patient agrees to use of scribes services. 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 Plan is as follows: Hypertension. Blood pressure is well controlled. Continue on metoprolol 25 mg half a tablet twice [...] stable And no change from previous study. Class 1 obesity. Advised dietary restrictions and regular exercise. Goal is to lose 4-6 lbs a month. General concerns have been discussed I have rendered the services for this patient under direct supervision of Dr. Holt, who did not see the patient but was available upon request 07/08/2024 Obstructive sleep apnea (adult) (pediatric) (ICD-10 [...] colonoscopy done in 2013 and is on 19-qvuk-coiec. Referred to GI for colonoscopy Immunizations. He is up-to-date on his vaccinations. Screening blood work before next appointment. General health concerns discussed with patient. Scribe services used to formulate this note under HIPAA compliance and under [place] law mandated for scribe services. Patient aware [...] colonoscopy done in 2013 and is on 78-mfit-hclst. Referred to GI for colonoscopy Immunizations. He is up-to-date on his vaccinations. Screening blood work before next appointment. General health concerns discussed with patient. Scribe services used to formulate this note under HIPAA compliance and under [place] law mandated for scribe services. Patient aware [...] colonoscopy done in 2013 and is on 64-lynf-ncmob. Referred to GI for colonoscopy Immunizations. He is up-to-date on his vaccinations. Screening blood work before next appointment. General health concerns discussed with patient. Scribe services used to formulate this note under HIPAA compliance and under [place] law mandated for scribe services. Patient aware [...] colonoscopy done in 2013 and is on 16-kzrf-pnqtl. Referred to GI for colonoscopy Immunizations. He is up-to-date on his vaccinations. Screening blood work before next appointment. General health concerns discussed with patient. Scribe services used to formulate this note under HIPAA compliance and under [place] law mandated for scribe services. Patient aware [...] IGM 06/08/2022 HEPATITIS B CORE ANTIBODY, IGM HEPATITIS B SURFACE ANTIGEN 06/08/2022 HEPATITIS C ANTIBODY 06/08/2022 MITOCHONDRIAL (M2) ANTIBODY 06/08/2022 SMOOTH MUSCLE ANTIBODY 06/08/2022 LIPID PANEL 12/13/2022 CBC, No Differential/Platelet-[id number] 04/2024 Next Appt Details Provider Name:Hany wilkinson, 07/09/2025 02:30:00 PM, [address] [place] [address], [place], [address], Insurance Providers Payer Name Payer Address Payer Phone Subscriber Number Group Number Insured Name Patient Relationship to Insured Coverage Start Date Coverage End Date [facility] [address] [place] [address] [id number] JoelAbhijeetel Self - patient is the insured 1 [...] st udy done sleep medicine services of [facility] in February 2020 Personal history of COVID-19 Surgical History Surgery Date(Month/Year) ACL repair of the right knee 09/2018 Stent placed 03/2019
--- OUTSIDE RECORDS SUMMARY | 2025-04-23 19:19 | XMS_ITS | Patient Health Record ---
Author Organization [facility] Address [address] [place] [address] [place] [address] Support Name Relationship Address Phone Bryce Maldonado Guarantor Unknown [phone] Reason For Referral No Information Problems Problem Type SNOMED Code ICD Code Onset Dates Problem Status W/U Status Risk Notes Problem Deviated nasal septum (411597926) Deviated nasal septum (J34.2) 03/10/2019 Active confirmed Problem Inflamed seborrheic keratosis (464078929) Inflamed seborrheic keratosis (L82.0) 03/10/2019 Active confirmed Plan Of Treatment No Information Medical (General) History Surgical History Surgery Date(Month/Year) Notes: No prior surgeries
--- NOTE | 2025-05-01 13:18 | HO.ANESPROP2 ---
Documented by User: Jacki Schofield NP 05/01/25 13:25 HPI - Anesthesia Eval Consult details Narrative: 60yo M for Colonoscopy Follows [facility] for CAD - stable at 01/2025 office visit. OK to hold plavix but continue asa periop. 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 minimal exertional dyspnea which has in the past appeared to be his ischemic equivalent. He is tolerating an increase in his exercise program. He reports an element of fatigue but he continues to have remarkable stamina and a very demanding occupation. He has had periodic stress tests which have demonstrated LAD distribution ischemia. Although the degree of ischemia has been somewhat variable his coronary angiogram several months ago revealed remarkably stable LAD disease and no significant disease in the left circumflex or right coronary arteries. [facility] Active Problems Active Problems: All Active Problems Colon cancer screening (Acute) Past Medical History Medical History Myocardial infarct GUSTAVO (obstructive sleep apnea) HLD (hyperlipidemia) HTN (hypertension) CAD (coronary artery disease) Colon cancer screening Family History Family History Mother Cholangiolitis Heart disease Father HTN (hypertension) Heart disease Paternal Grandfather Cancer Surgical History Surgical History H/O adenoidectomy Hx of colonoscopy History of repair of ACL Social History Social History Household Members: Family Alcohol intake: former Patient Tobacco Use Status: Former Tobacco user Use of substances other than those prescribed or required for medical reasons: No Are you DNR?: No Advance Directives: No Advance Directives Information Provided: Yes Poor oral hygiene: No Meds Allergies Allergy/AdvReac Type Severity Reaction Status Date / Time No Known Allergies Allergy Verified 12/16/24 09:46 Home Medications ?Medication ?Instructions ?Recorded ?Confirmed ?Last Taken ?Type aspirin 81 mg tablet,delayed 81 mg PO DAILY 12/01/24 05/05/25 05/03/25 History release (Adult Low Dose Aspirin) atorvastatin 80 mg tablet 80 mg PO DAILY 12/01/24 12/16/24 Unknown History clopidogrel 75 mg tablet 75 mg PO DAILY 12/01/24 05/05/25 04/29/25 History escitalopram oxalate 10 mg tablet 10 mg PO DAILY 12/01/24 05/05/25 05/05/25 History fexofenadine 180 mg tablet 180 mg PO DAILY 12/01/24 12/16/24 Unknown History (Julia Allergy) lisinopril 10 mg tablet 10 mg PO DAILY 12/01/24 05/05/25 05/05/25 History oxymetazoline 0.05 % nasal spray 2 spray intranasal Q12H PRN 12/01/24 12/16/24 Unknown History (12 Hour Nasal Relief Man[place]) temazepam 7.5 mg capsule 7.5 mg PO BEDTIME PRN 12/01/24 12/16/24 Unknown History cholecalciferol (vitamin D3) 50 50 mcg PO DAILY 12/16/24 12/16/24 Unknown History mcg (2,000 unit) capsule melatonin 10 mg tablet 10 mg PO BEDTIME PRN 12/16/24 12/16/24 Unknown History metoprolol tartrate 50 mg tablet 25 mg PO BID 12/16/24 05/05/25 05/05/25 History Exam Narrative Narrative: EKG 01/2025 Sinus bradycardia Non-specific intra-ventricular conduction delay Borderline ECG No previous ECGs available Confirmed by SHAHRAM MENCHACA ([id number]) on 02/12/2025 4:30:04 PM Cardiac cath 04/2024 Conclusions Diagnostic Summary 59-year-old gentleman with history of coronary artery disease, hypertension, previous PCI of the proximal LCx in 2016 who was having worsening exercise tolerance. LVEDP 11 mmHg. Mean gradient across aortic valve on pullback was 5 mmHg. Diagnostic angiogram revealed 40% stenosis in the distal subsection of left main coronary artery, 40% stenosis of the ostium of the proximal LAD, 65% stenosis in the proximal subsection of mid LAD just after the bifurcation with D1 and 60% stenosis in the mid subsection of mid LAD. There is 40% stenosis at the ostium of the proximal LCx and 30% stenosis in the mid subsection of mid LCx. There is 30% stenosis in the mid subsection of mid RCA and 50% stenosis in the mid subsection of distal RCA. Above-mentioned finding indicates that patient has moderate coronary artery disease both in left and right coronary artery system. When compared to the prior angiogram, there is not really significant change from before. Hence I would recommend to continue medical management for him. In future, if he continues to have symptom and he already had stress test positivity in the LAD territory, he would probably seek out for coronary artery bypass grafts surgery with plan for ROSE to LAD, SVG to D1, SVG to OM2 and SVG to RPDA. Assessment and Plan Assessment Anesthesia Assessment: Chart Reviewed Documented by User: Kapil Solitario MD 05/05/25 07:54 [facility] Past Medical History Medical History Myocardial infarct GUSTAVO (obstructive sleep apnea) HLD (hyperlipidemia) HTN (hypertension) CAD (coronary artery disease) Colon cancer screening Family History Family History Mother Cholangiolitis Heart disease Father HTN (hypertension) Heart disease Paternal Grandfather Cancer Family history of problems with anesthesia: No Surgical History Surgical History H/O adenoidectomy Hx of colonoscopy History of repair of ACL History of Problems with Anesthesia: No Social History Social History Household Members: Family Alcohol intake: former Patient Tobacco Use Status: Former Tobacco user Use of substances other than those prescribed or required for medical reasons: No Are you DNR?: No Advance Directives: No Advance Directives Information Provided: Yes Poor oral hygiene: No Meds Allergies Allergy/AdvReac Type Severity Reaction Status Date / Time No Known Allergies Allergy Verified 12/16/24 09:46 Home Medications ?Medication ?Instructions ?Recorded ?Confirmed ?Last Taken ?Type aspirin 81 mg tablet,delayed 81 mg PO DAILY 12/01/24 05/05/25 05/03/25 History release (Adult Low Dose Aspirin) atorvastatin 80 mg tablet 80 mg PO DAILY 12/01/24 12/16/24 Unknown History clopidogrel 75 mg tablet 75 mg PO DAILY 12/01/24 05/05/25 04/29/25 History escitalopram oxalate 10 mg tablet 10 mg PO DAILY 12/01/24 05/05/25 05/05/25 History fexofenadine 180 mg tablet 180 mg PO DAILY 12/01/24 12/16/24 Unknown History (Julia Allergy) lisinopril 10 mg tablet 10 mg PO DAILY 12/01/24 05/05/25 05/05/25 History oxymetazoline 0.05 % nasal spray 2 spray intranasal Q12H PRN 12/01/24 12/16/24 Unknown History (12 Hour Nasal Relief Manly) temazepam 7.5 mg capsule 7.5 mg PO BEDTIME PRN 12/01/24 12/16/24 Unknown History cholecalciferol (vitamin D3) 50 50 mcg PO DAILY 12/16/24 12/16/24 Unknown History mcg (2,000 unit) capsule melatonin 10 mg tablet 10 mg PO BEDTIME PRN 12/16/24 12/16/24 Unknown History metoprolol tartrate 50 mg tablet 25 mg PO BID 12/16/24 05/05/25 05/05/25 History Exam Airway Mallampati Class: II TM Dist: >3cm Neck ROM: Full Loose/Missing/Broken Teeth: No Assessment and Plan Assessment Anesthesia Assessment: Anesthesia Plan Discussed Final Anesthetic Review Family History of Problems with Anesthesia: No History of Problems with Anesthesia: No NPO: Yes ASA Class: III Final Preanesthetic Review: No Changes in Pt Med Stat, Meds/Allgs Chart Reviewed, Consent Obtained/Reviewed and Anes Risks/Benef Reviewed Patient Risk: Intermediate Procedure Risk: Low Anesthetic Plan Anesthetic Plan: MAC: Disposition: Standard PACU
[2025-05-01 15:16] VITALS: BMI 30.2
[2025-05-05 06:42] VITALS: BMI 29.6
[2025-05-05 06:57] VITALS: BP 102/54; PULSE 38; RESP 16; TEMP 36.1; O2SAT 96
[2025-05-05] MEDS: Lactated Ringers 1,000 ML 100 ML IVCONT (07:15)
[2025-05-05 07:36] VITALS: PULSE 34
--- NOTE | 2025-05-05 07:38 | MHC.SHP ---
Pre-Procedural Eval Section A - 24 Hr Update-Section A only Date of Service: 05/05/25 Section B - Complete if H&P > 30 days Chief Complaint: screening Relevant Family History (Specify if Yes): No Relevant Social History: None Present Medications: see Short Stay Collaborative assessment Medical History: Significant History (CAD) History of Previous Operations: Relevant previous surgery/procedure and date(s) ( Hx of colonoscopy History of repair of ACL) Allergies: Allergies Allergy/AdvReac Type Severity Reaction Status Date / Time No Known Allergies Allergy Verified 12/16/24 09:46 Surgical History (Updated 12/16/24 @ 09:59 by Lexie Portillo) Review of Systems Sugical H&P ROS: Negative: Constitution, Cardiovascular, Respiratory, Neurological, Psychiatric, Hem-Onc, Allergic/Immunologic, Gastrointestinal, Genitourinary, Musculoskeletal, Integumentary, Endocrine and Eyes/Ears/Nose/Throat Exam Surgical H&P Exam: Normal: HEENT, Normal: Heart, Normal: Lungs, Normal: Extremities, Normal: Abdomen, Normal: Skin and Normal: Neurological Plan Diagnosis/Plan: Unchanged I have reviewed the history and physical and performed a pertinent physical examination on my patient. No changes have occurred unless specified. Time Spent With Patient Time: Total time managing care of this patient today ____ minutes.
--- NOTE | 2025-05-05 08:08 | HO.OPN-COLON ---
Colonoscopy Operative Note Operative Note Date of Service: 05/05/25 Narrative: Operative Information Procedure Description: Colonoscopy Indication: screening Anesthesia: MAC COLONOSCOPY Instrument: Olympus variable stiffness pediatric scope 190L Colonoscopy Monitoring: Vital signs and clinical assessment, continuous EKG monitoring, Pulse oximetry, Carbon Dioxide monitoring and blood pressure monitoring were done throughout the procedure. Colon withdrawal time was 15 minutes. Procedure: The patient was placed in the left lateral decubitis position and pre-procedure medications were administered. After a digital rectal examination of the ano-rectum, the video colonoscope was inserted into the rectum and advanced through the colon to the cecum/TI. The colonoscope was slowly withdrawn in a retrograde panoramic fashion and the colon mucosa was carefully examined including a retroflexed view of the rectum. Findings and interventions are described below. Procedure Difficulty: easy Findings: Terminal Ileum-normal Cecum:normal Right sided retroflexion- normal Ascending Colon: normal Transverse Colon -normal Descending Colon:normal Sigmoid Colon: normal Rectum: Retroflexion with small internal hemorrhoids seen, grade I Anorectum - normal Intervention: none Colon preparation: [place] Bowel Preparation Scale Right colon; 2 Transverse colon: 2 Left colon; 2 (0 = Unprepared colon segment with mucosa not seen due to solid stool that cannot be cleared. 1 = Portion of mucosa of the colon segment seen, but other areas of the colon segment not well seen due to staining, residual stool and/or opaque liquid. 2 = Minor amount of residual staining, small fragments of stool and/or opaque liquid, but mucosa of colon segment seen well. 3 = Entire mucosa of colon segment seen well with no residual staining, small fragments of stool or opaque liquid) Impression and Post Procedure Diagnosis: internal hemorrhoids Plan: High fiber diet leaflet Avoid straining at stool, epsom salts and sitz bath, anusol supps or cream Repeat Colonoscopy in 10 years or earlier if clinically indicated Above findings were reviewed with the patient and relevant handouts were provided if indicated.
[2025-05-05 08:15] VITALS: BP 79/46; PULSE 40; RESP 10; TEMP 36.3; O2SAT 96
[2025-05-05 08:30] VITALS: BP 101/51; PULSE 42; RESP 14; TEMP 36.3; O2SAT 100
== END 2025-05-05 09:31 | disposition home or self-care (01) ==
PROVIDERS: PCP Hospitalist; Visit Provider Internal Medicine Gastroenterology
PROC: 0DJD8ZZ Inspection of Lower Intestinal Tract, Via Natural or Artificial Opening Endoscopic (ICD-10-PCS; CPT 45378; principal; 2025-05-05 07:30)
DX: Z12.11 Encounter for screening for malignant neoplasm of colon (principal); K64.0 First degree hemorrhoids
CPT/HCPCS: 45378; J2003; J2704

== ENCOUNTER → 2025-05-05 06:38 | Outpatient (BNV) | payer OTHER, SELFPAY | PROVIDERS: PCP Hospitalist; Visit Provider Internal Medicine Gastroenterology | DX: Z12.11 Encounter for screening for malignant neoplasm of colon (principal); K64.0 First degree hemorrhoids | CPT/HCPCS: 45378 ==